=== PATIENT | female | born 1960 | race Caucasian/White ===

== ENCOUNTER 2024-01-17 06:51 | Day surgery (SDC) | payer MEDICAID ==
[2024-01-10 11:42] LABS: BASOPHILS # (AUTO) 0.2 X10'3 (0-0.2); BASOPHILS % (AUTO) 1.4 % (0-1); EOSINOPHILS # (AUTO) 0.2 X10'3 (0-0.9); EOSINOPHILS % (AUTO) 1.4 % (0-6); LYMPHOCYTES # (AUTO) 2.2 X10'3 (1.1-4.8); LYMPHOCYTES % (AUTO) 18.2 % (21-51); MEAN CORPUSCULAR HEMOGLOBIN 26.3 PG (27.0-31.0); MEAN CORPUSCULAR HGB CONC 32.9 g/dL (33.0-36.5); MEAN CORPUSCULAR VOLUME 80.1 FL (78-98); MEAN PLATELET VOLUME 6.8 FL (7.4-10.4); MONOCYTES # (AUTO) 0.7 X10'3 (0-0.9); MONOCYTES % (AUTO) 5.5 % (2-12); NEUTROPHILS # (AUTO) 8.9 X10'3 (1.8-7.7); NEUTROPHILS % (AUTO) 73.5 % (42-75); PRE OP HEMATOCRIT 43.8 % (35.0-45.0); PRE OP HEMOGLOBIN 14.4 g/dL (12.0-16.0); PRE OP PLATELET COUNT 423 X10'3 (140-440); PRE OP WHITE BLOOD COUNT 12.2 10'3 (4.8-10.8); RED BLOOD COUNT 5.47 X10'6 (4.20-5.60); RED CELL DISTRIBUTION WIDTH 14.4 % (11.5-14.5)
[2024-01-10 12:01] LABS: ALBUMIN 3.4 G/DL (3.4-5.0); ALBUMIN/GLOBULIN RATIO 0.9 (1.1-1.5); ALKALINE PHOSPHATASE 71 IU/L (46-116); BLOOD UREA NITROGEN 20 MG/DL (7-18); CALCIUM 9.2 MG/DL (8.5-10.1); CHLORIDE 104 MMOL/L (99-107); CREATININE 0.87 MG/DL (0.40-0.90); PRE OP ALT 31 U/L (30-65); PRE OP ANION GAP 5 (8-16); PRE OP AST 14 U/L (10-37); PRE OP BILIRUB, TOTAL 0.3 MG/DL (0.0-1.0); PRE OP GLUCOSE 134 MG/DL (70-104); PRE OP POTASSIUM 3.9 MMOL/L (3.4-5.1); PRE OP SODIUM 140 MMOL/L (135-145); TOTAL CARBON DIOXIDE 30.9 MMOL/L (24-32); TOTAL PROTEIN 7.2 G/DL (6.4-8.2); eGFR 66 ML/MIN
[~2024-01-17] VITALS: Ht 160 cm; Wt 112.5 kg
[2024-01-17] VITALS (9 sets, daily range): BP systolic 108–169; BP diastolic 61–99; PULSE 63–94; RESP 13–16; TEMP 97.4; O2SAT 95–98
[2024-01-17] MEDS: cefazolin 2gm/D5W 100mL 100 ML IV ONE (05:30)
[~2024-01-17 06:51] MED LIST: ALBU8HFA INH; FLUT16SP16 BOTHNARES; HYDR-3686 PO; HYDR-3972 PO; HYDR200T80 PO; IPRA3AMP31 NEB; NAPR-996 PO; OXYB5TAB21 PO; PANT-47 PO; PRAM0.754 PO; PRE5T PO; PRED5DRO23 EACHEYE; SPIR25TA5 PO; albuterol 2.5 MG/3 ML nebule NEB ONE
[2024-01-17] MEDS ORDERED: meperidine/PF 25mg/ml syringe IV PRN ×3 (07:30)
[2024-01-17] MEDS ORDERED: morphine 2 MG/ML inj. syringe IV PRN (07:30)
[2024-01-17] MEDS: acetaminophen 1,000mg/100ml IV 100 ML IV ONE (07:30)
[2024-01-17] MEDS ORDERED: morphine 4 MG/ML inj SYRINge IV PRN (07:30)
[2024-01-17] MEDS ORDERED: ringers solution, lacted 1,000 ML IV SCH (07:30)
[2024-01-17] MEDS ORDERED: labetalol 20mg/4ml (5mg/ml) syringe IV PRN (07:30)
[2024-01-17] MEDS ORDERED: ondansetron/PF 4mg/2ml inj IV PRN (07:30)
[2024-01-17] MEDS ORDERED: proCHLORperazine 10 MG/2 ml inj IV PRN (07:30)
[2024-01-17] MEDS ORDERED: hydrALAZINE 20mg/ml inj. IV PRN (07:30)
[2024-01-17] MEDS ORDERED: LIDOcaine 2% (20mg/ml) 5ml vial ONE (07:48)
[2024-01-17] MEDS ORDERED: BUPIVAcaine/PF 2.5mg/ml (0.25%) 10ml vial ONE (07:48)
[2024-01-17] MEDS: famotidine 20mg tablet PO ONE (08:03)
[2024-01-17] MEDS: ringers solution, lacted 1,000 ML IV SCH (08:04)
[2024-01-17] MEDS ORDERED: midazolam 1 mg/ML 2ml injection ONE (09:01)
[2024-01-17] MEDS ORDERED: fentaNYL/PF 50MCG/1 ML 2ML syringe ONE (09:01)
[2024-01-17] MEDS ORDERED: propofol inj 20 ML IV ONE (09:11)
[2024-01-17] MEDS: LIDOcaine 2% (20mg/ml) 5ml vial SQ ONE (09:11)
== END 2024-01-17 10:33 | disposition home or self-care (01) ==
LOC: PAS 06:51
PROVIDERS: ATTEND Orthopaedic Surgery Hand Surgery
DX: G56.02 Carpal tunnel syndrome, left upper limb (principal); I45.10 Unspecified right bundle-branch block; I10 Essential (primary) hypertension; J43.9 Emphysema, unspecified; G47.33 Obstructive sleep apnea (adult) (pediatric); K21.9 Gastro-esophageal reflux disease without esophagitis; E66.9 Obesity, unspecified; I20.9 Angina pectoris, unspecified; F41.9 Anxiety disorder, unspecified; I25.2 Old myocardial infarction; M06.9 Rheumatoid arthritis, unspecified; Z79.891 Long term (current) use of opiate analgesic; Z79.899 Other long term (current) drug therapy; Z90.49 Acquired absence of other specified parts of digestive tract; Z90.710 Acquired absence of both cervix and uterus; Z98.890 Other specified postprocedural states; Z68.41 Body mass index [BMI] 40.0-44.9, adult; Z88.5 Allergy status to narcotic agent
CPT/HCPCS: 36415; 64721; 80053; 82948; 85025; 93005; J0131; J0690; J2250; J2704; J3010; J3490; J7030; J7120; Z7506; Z7512; A4215; A6449; S0020